=== PATIENT | female | born 1965 | race Caucasian/White ===

== ENCOUNTER 2023-02-25 12:40 | Outpatient (CLI) | payer MEDICAID, SELFPAY ==
--- NOTE | 2023-02-25 13:00 | USR_ITS ---
PROCEDURE INFORMATION: Exam: US Duplex Bilateral Lower Extremity Arteries Exam date and time: 02/25/2023 1:03 PM Age: 57 years old Clinical indication: Pain; Leg, lower; Bilateral; Additional info: Pad TECHNIQUE: Imaging protocol: Real-time ultrasound scan of the arteries of the bilateral lower extremities with 2-D moeller scale, color Doppler flow and spectral waveform analysis. Images documented and saved. COMPARISON: No relevant prior studies available. FINDINGS: Right external iliac artery: Normal waveform. Peak velocity 95 cm/second. No visible plaque. Right common femoral artery: Normal waveform. Peak velocity 81 cm/s. No visible plaque. Right superficial femoral artery: Normal waveform. Peak velocity 82 cm/second. Mild plaque. Right popliteal artery: Normal waveform. Peak velocity 56 cm/second. No visible plaque. Right calf/foot arteries: Right posterior tibial artery demonstrates a normal waveform. Peak velocity 68 cm/second. Right dorsalis pedis artery demonstrates a normal waveform. Peak velocity 55 cm/second. Left external iliac artery: Normal waveform. Peak velocity peak velocity 83 cm/second. No visible plaque. Left common femoral artery: Normal waveform. Peak velocity 78 cm/second. Mild plaque. Left superficial femoral artery: Normal waveform. Peak velocity 99 cm/second. Mild plaque. Left popliteal artery: Normal waveform. Peak velocity 57 cm/second. No visible plaque. Left calf/foot arteries: Left posterior tibial artery demonstrates a poorly visualized waveform. Peak velocity 36 cm/second. Left dorsalis pedis artery demonstrates a normal waveform. Peak velocity 62 cm/second. US/CV arterial duplex [facility] [id number] IMPRESSION: No sign of hemodynamically significant arterial stenosis in the lower extremities.
== END 2023-02-25 12:41 | disposition home or self-care (01) ==
LOC: RAD 12:46
PROVIDERS: PCP Nurse Practitioner Family; Visit Provider Internal Medicine Cardiovascular Disease
DX: I73.9 Peripheral vascular disease, unspecified (principal)
CPT/HCPCS: 93925

== ENCOUNTER → 2023-08-24 16:33 | Outpatient (BNVA) | payer MEDICAID, SELFPAY | PROVIDERS: PCP Nurse Practitioner Family; Visit Provider Internal Medicine Cardiovascular Disease | DX: R06.02 Shortness of breath (principal); I10 Essential (primary) hypertension; Z79.899 Other long term (current) drug therapy | CPT/HCPCS: 36415; 80048; 83880 ==

== ENCOUNTER 2023-09-03 13:38 | Outpatient (CLI) | payer MEDICAID, SELFPAY ==
--- NOTE | 2023-09-03 13:45 | USCV_ITS ---
Madison Temple Age: 57 Gender: F : 1965 Exam Date: 09/03/2023 14:03 Ordering Phys: Rashel Wyatt MD ([email or web address]) Technologist: CT Exam Location[place] [facility] [place] Indication: sob BP: 128 / 78 HR: 80 Rhythm: Sinus Technical Quality: Fair MEASUREMENTS (Male / Female) Normal Values 2D ECHO LV Chamber Size 4.8 cm LVOT Diameter 2.0 cm LV Ejection Fraction MOD 2C 31.5 % LV Ejection Fraction 2C AL 31.4 % LA Diameter 4.8 cm LA Width 3.8 cm LA Height 5.7 cm RA Width 4.0 cm RA Height 5.4 cm Aorta at Sinotubular Diameter 1.9 cm M-MODE Aortic Annulus Diameter 2.8 cm LA Ao Ratio MM 1.9 MV E Point Septal Separation 1.6 cm DOPPLER AV Peak Velocity 106.0 cm/s LVOT Peak Velocity 93.0 cm/s AV Area Cont Eq vti 2.7 cm squared AV Area Cont Eq pk 2.8 cm squared MV E' Velocity 8.0 cm/s TR Peak Velocity 98.0 cm/s TR Peak Gradient 3.8 mmHg TV Peak E Velocity 76.0 cm/s Right Atrial Pressure 3.0 mmHg Pulmonary Artery Systolic Pressu 6.8 mmHg PV Peak Velocity 111.0 cm/s FINDINGS Left Ventricle Mild diffuse hypokinesia of the LV apex. LV ejection fraction around 40 to 45%. Segmental wall motion analysis difficult because of the poor ultrasonic window. Right Ventricle The right ventricle is normal in size and function. Right Atrium Possibly of normal size Left Atrium Mildly increased left atrial size. Mitral Valve Moderate mitral annular calcification. Mild-moderate mitral valve regurgitation. Aortic Valve Thickened aortic valve. Tricuspid Valve No gross abnormalities noted Pulmonic Valve Pulmonic valve not well visualized. Pericardium No pericardial effusion. Aorta Normal aortic annulus size. IVC The inferior vena cava appears normal. CONCLUSIONS Mild diffuse hypokinesia of the LV apex. LV ejection fraction around 40 to 45%. Segmental wall motion analysis difficult because of the poor ultrasonic window. Mildly increased left atrial size. Moderate mitral annular calcification. Mild-moderate mitral valve regurgitation. Thickened aortic valve. There is no pericardial effusion. Consider contrast echo to better evaluate the ejection fraction and segmental wall motion No similar previous studies are available for comparison Dr Rashel Wyatt MD FACC (Electronically Signed) Final Date: 20 September 2023 09:10 S
== END 2023-09-03 13:39 | disposition home or self-care (01) ==
LOC: RAD 13:39
PROVIDERS: PCP Nurse Practitioner Family; Visit Provider Internal Medicine Cardiovascular Disease
DX: I50.20 Unspecified systolic (congestive) heart failure (principal); I42.8 Other cardiomyopathies; I08.0 Rheumatic disorders of both mitral and aortic valves
CPT/HCPCS: 93306

== ENCOUNTER → 2025-03-20 11:11 | Outpatient (BNVA) | payer MEDICAID, SELFPAY | PROVIDERS: PCP Nurse Practitioner Family; Visit Provider Internal Medicine | DX: E03.9 Hypothyroidism, unspecified (principal); M81.0 Age-related osteoporosis without current pathological fracture; E11.9 Type 2 diabetes mellitus without complications | CPT/HCPCS: 36415; 80053; 80061; 82306; 82310; 83036; 83970; 84439; 84443 ==